=== PATIENT | male | born 1950 | race Caucasian/White ===

== ENCOUNTER 2017-08-25 17:46 | Emergency (ER) | payer MEDICARE, OTHER ==
[2017-08-25 17:55] VITALS: PULSE 70
[2017-08-25] MEDS ORDERED: Pepcid 20 MG VIAL IV ONE ×2 (18:06→18:34)
[2017-08-25] MEDS ORDERED: BABY ASPIRIN 81 MG CHEW PO ONE (18:06)
--- NOTE | 2017-08-25 18:13 | ERPHSYRPT ---
<GEORGES TAPIA J - Last Filed: 08/25/17 18:54> - History of Present Illness Time Seen by Provider: 08/25/17 17:58 Historian: patient, family () Patient Subjective Stated Complaint: pt here for chest pain to center of chest radiating to back at home that has now resolved,no other syptoms Triage Nursing Assessment: pt alert, resp easy, skin w/d/p. states b/p has been high today ,chest clear Physician History: CC: chest pain Hx: 67 y/o patient of [place] used to live here but moved to [place]. Back in town for a few days to tie up loose ends. Used to see Dr Zapien. He has hx of heart disease and aICD. Has had recent ups and downs to BP. Went to [place] this AM but could not be seen. He was burning trash today. No injury. 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 No abd pain. The pain was severe. Not like pain he had in the past. He took a NTG but no change. The pain went away on the way here. No current pain. He takes pradaxa for afib. Timing/Duration: today Nitro Today/Relief: 0.4 mg x 1, provided at home Aspirin Treatment Today: 81 mg x 1, provided by ED Allergies/Adverse Reactions: clarithromycin [From Biaxin] Allergy (Verified 08/25/17 17:56) acetaminophen [From [place]] Adverse Reaction (Verified 08/25/17 17:56) hydrocodone [From [place]] Adverse Reaction (Verified 08/25/17 17:56) Home Medications: Aspirin 81 mg DAILY 08/25/17 [History] Cyanocobalamin (Vitamin B-12) [B-12] 1,000 mg DAILY 08/25/17 [History] Dabigatran Etexilate Mesylate [Pradaxa] 150 mg BID 08/25/17 [History] Finasteride 5 mg [Proscar 5 MG] 5 mg DAILY 08/25/17 [History] Furosemide 40 mg [Lasix 40 MG] 60 mg DAILY 08/25/17 [History] Gabapentin [Neurontin] 600 mg TID 08/25/17 [History] Ipratropium/Albuterol Sulfate [Combivent Inhaler] 2 puffs DAILY 08/25/17 [ History] Lamotrigine 25 mg BID 08/25/17 [History] Lorazepam 0.5 mg [Ativan 0.5 MG] 0.5 mg DAILY 08/25/17 [History] Losartan Potassium [Cozaar] 100 mg DAILY 08/25/17 [History] Oxycodone HCl/Acetaminophen [Oxycodone-Acetaminophen 5-325] 1 ea QID 08/25/17 [ History] Potassium Chloride 10 Meq Tab* [Klor Con 10 MEQ] 10 meq DAILY 08/25/17 [ History] Pravastatin Sodium 20 mg DAILY 08/25/17 [History] Sotalol HCl [Sorine] 80 mg BID 08/25/17 [History] Tamsulosin HCl 0.4 mg [Flomax 0.4 MG] 0.4 mg DAILY 08/25/17 [History] Tizanidine HCl 4 mg [Zanaflex 4 MG] 4 mg DAILY 08/25/17 [History] Hx Influenza Vaccination/Date Given: No Hx Pneumococcal Vaccination/Date Given: No Immunizations Up to Date: Yes - Review of Systems Constitutional: No Fever, No Chills Eyes: No Symptoms Ears, Nose, & Throat: No Symptoms Respiratory: No Cough, No Dyspnea Cardiac: Chest Pain Abdominal/Gastrointestinal: No Abdominal Pain, No Nausea, No Vomiting Genitourinary Symptoms: No Dysuria Skin: No Rash Neurological: No Focal Weakness, No Headache, No Parasthesia All Other Systems: Reviewed and Negative - Past Medical History Pertinent Past Medical History: Yes Cardiac History: Coronary Artery Disease Musculoskeletal History: Degenerative Disk Disease - Past Surgical History Past Surgical History: Yes Cardiac: Cardiac Catheterization, Internal Defibrillator, Pacemaker Gastrointestinal: Cholecystectomy Other Surgical History: caropal tunnel, foot surgery - Social History Smoking Status: Former smoker Exposure to second hand smoke: No Drug Use: none Patient Lives Alone: No - Nursing Vital Signs Nursing Vital Signs: Initial Vital Signs Temperature 97.2 F 08/25/17 17:46 Pulse Rate 100 H 08/25/17 17:46 Respiratory Rate 16 08/25/17 17:46 Blood Pressure 167/80 08/25/17 17:46 O2 Sat by Pulse Oximetry 97 08/25/17 17:46 Pain Scale Pain Intensity 1 - Physical Exam General Appearance: alert Eye Exam: PERRL/EOMI Ears, Nose, Throat Exam: normal ENT inspection, moist mucous membranes Neck Exam: normal inspection, non-tender, supple Respiratory Exam: normal breath sounds, lungs clear Cardiovascular Exam: regular rate/rhythm Gastrointestinal/Abdomen Exam: soft, No tenderness, No distention Extremity Exam: pedal edema Neurologic Exam: alert, oriented x 3, cooperative, sensation nml, No motor deficits Skin Exam: warm, dry, No rash SpO2 Interpretation: normal SpO2: 97 Oxygen Delivery: Room Air - Course Nursing assessment & vital signs reviewed: Yes EKG Interpreted by Me: RATE (79 atrial paced rhythm), LAFB, Non-specific ST Changes, Other (Poor R wave progression) - Radiology Exams cxr X-ray Interpretation: Reviewed by me (CM, AICD, ectatic aorta with some dilatation) Ordered Tests: Active Orders 24 hr Category Date Time Status Seasonal Delivery Driver STAT Care 08/25/17 18:06 Active EKG-ER Only STAT Care 08/25/17 18:06 Active IV Insertion STAT Care 08/25/17 18:06 Active Pulse Oximetry (ED) STAT Care 08/25/17 18:06 Active CHEST 1 VIEW (PORTABLE) Stat Exams 08/25/17 18:18 Taken CBC W DIFF Stat Lab 08/25/17 18:14 Completed CMP Stat Lab 08/25/17 18:14 Completed LIPASE Stat Lab 08/25/17 18:14 Completed Manual Differential NC Stat Lab 08/25/17 18:14 Completed TROPONIN Q3H Lab 08/25/17 18:14 Completed TROPONIN Q3H Lab 08/25/17 21:15 Ordered TROPONIN Q3H Lab 08/26/17 00:15 Ordered TROPONIN Q3H Lab 08/26/17 03:15 Ordered TROPONIN Q3H Lab 08/26/17 06:15 Ordered Medication Summary Discontinued Medications Generic Name Dose Route Start Last Admin Trade Name Freq PRN Reason Stop Dose Admin Aspirin 81 mg 08/25/17 18:06 08/25/17 18:35 Baby Aspirin 81 Mg Chew PO 08/25/17 18:07 81 mg STAT ONE Administration Aspirin Confirm 08/25/17 18:34 Baby Aspirin 81 Mg Chew Administered 08/25/17 18:35 Dose 81 mg .ROUTE .STK-MED ONE Famotidine 20 mg 08/25/17 18:06 08/25/17 18:35 Pepcid 20 Mg Vial IV 08/25/17 18:07 20 mg STAT ONE Administration Famotidine Confirm 08/25/17 18:34 Pepcid 20 Mg Vial Administered 08/25/17 18:35 Dose 20 mg IV .STK-MED ONE Lab/Rad Data: Laboratory Result Diagrams 08/25/17 18:14 08/25/17 18:14 Laboratory Results 08/25/17 08/25/17 08/25/17 Range/Units 18:14 18:14 18:14 WBC (4.0-10.5) K/mm3 RBC (4.1-5.6) M/mm3 Hgb (12.5-18.0) gm/dl Hct (42-50) % MCV (78-100) fl MCH (26-32) pg MCHC (32-36) g/dl RDW (11.5-14.0) % Plt Count (150-450) K/mm3 MPV (6-9.5) fl Sodium 141 (136-145) mEq/L Potassium 3.9 (3.5-5.1) mEq/L Chloride 107 (98-107) mEq/L Carbon Dioxide 26.3 (21-32) mEq/L Anion Gap 11.9 (5-15) MEQ/L BUN 31 H (9-20) mg/dL Creatinine 1.38 H (0.55-1.30) mg/dl Estimated GFR 54 ML/MIN Glucose 118 H (70-110) MG/DL Calcium 8.5 (8.5-10.1) mg/dL Total Bilirubin 0.20 (0.2-1.0) mg/dL AST 15 (15-37) U/L ALT 25 (12-78) U/L Alkaline Phosphatase 62 (46-116) U/L Troponin I < 0.017 (0.000-0.056) ng/ml Serum Total Protein 6.8 (6.4-8.2) gm/dL Albumin 3.5 (3.4-5.0) g/dL Lipase 315 (73-393) U/L 08/25/17 Range/Units 18:14 WBC 18.6 H (4.0-10.5) K/mm3 RBC 4.94 (4.1-5.6) M/mm3 Hgb 13.5 (12.5-18.0) gm/dl Hct 42.1 (42-50) % MCV 85.2 (78-100) fl MCH 27.3 (26-32) pg MCHC 32.1 (32-36) g/dl RDW 14.1 H (11.5-14.0) % Plt Count 279 (150-450) K/mm3 MPV 10.1 H (6-9.5) fl Sodium (136-145) mEq/L Potassium (3.5-5.1) mEq/L Chloride (98-107) mEq/L Carbon Dioxide (21-32) mEq/L Anion Gap (5-15) MEQ/L BUN (9-20) mg/dL Creatinine (0.55-1.30) mg/dl Estimated GFR ML/MIN Glucose (70-110) MG/DL Calcium (8.5-10.1) mg/dL Total Bilirubin (0.2-1.0) mg/dL AST (15-37) U/L ALT (12-78) U/L Alkaline Phosphatase (46-116) U/L Troponin I (0.000-0.056) ng/ml Serum Total Protein (6.4-8.2) gm/dL Albumin (3.4-5.0) g/dL Lipase (73-393) U/L - Progress Progress Note: 08/25/17 18:54 Pt stable. Report to Dr Longoria for further care and disposition. - Departure Clinical Impression: CHEST PAIN, CAD Condition: Stable Referrals: MARKEL BANKS [Primary Care Provider] - <AARON LONGORIA - Last Filed: 08/25/17 20:07> - Progress Progress Note: 08/25/17 19:[address] LONGORIA 193: PERRL, EOMI, PHARYNX PINK, LUNGS CLEAR, NO CARDIAC RUB, ABDOMINAL B.S. HAVE NORMAL TONE, NO CYANOSIS, ALERT & COOPERATIVE. Discussed with DrEdwin: Other (SPOKE WITH DR PADRON(HOSPITALIST AT [facility])(1954) WHO ACCEPTED PT FOR TRANSFER TO [facility] A DIRECT ADMISSION.) - Departure Time of Disposition: 20:07 Departure Disposition: Transfer ([facility]) Critical Care Time: No
[2017-08-25 18:18] LABS: Granulocyte Absolute (ANC) 14.27 (1.4-6.9); Hematocrit 42.1 % (42-50); Hemoglobin 13.5 gm/dl (12.5-18.0); Mean Cell Volume 85.2 fl (78-100); Mean Corpuscular Hemoglobin 27.3 pg (26-32); Mean Corpuscular Hgb Concent. 32.1 g/dl (32-36); Mean Platelet Volume 10.1 fl (6-9.5); Platelet Count 279 K/mm3 (150-450); Red Blood Count 4.94 M/mm3 (4.1-5.6); Red Cell Distribution Width 14.1 % (11.5-14.0); White Blood Count 18.6 K/mm3 (4.0-10.5)
[2017-08-25] MEDS ORDERED: BABY ASPIRIN 81 MG CHEW ONE (18:34)
[2017-08-25 18:37] LABS: ALBUMIN 3.5 g/dL (3.4-5.0); ANION GAP 11.9 MEQ/L (5-15); BILIRUBIN,TOTAL 0.2 mg/dL (0.2-1.0); Calcium 8.5 mg/dL (8.5-10.1); Carbon Dioxide 26.3 mEq/L (21-32); Creatinine 1 1.38 mg/dl (0.55-1.30); Potassium 3.9 mEq/L (3.5-5.1); Total Protein 6.8 gm/dL (6.4-8.2)
[2017-08-25 20:14] VITALS: BP 162/78; O2SAT 94
[2017-08-25] MEDS ORDERED: Sodium Chloride 0.9% 1000 ML 1,000 ML IV SCH (20:15)
[2017-08-25] MEDS ORDERED: MORPHINE SULFATE 4 MG INJ IV ONE (20:19)
[2017-08-25] MEDS ORDERED: Zofran 4 MG/2 ML VIAL IV ONE (20:19)
[2017-08-25] MEDS ORDERED: Sodium Chloride 0.9% 1000 ML 1,000 ML ONE (20:21)
[2017-08-25] MEDS ORDERED: MORPHINE SULFATE 2 MG INJ ONE (20:21)
[2017-08-25] MEDS ORDERED: Zofran 4 MG/2 ML VIAL ONE (20:36)
[2017-08-25 21:37] LABS: Lymphocytes 10 % (24-44); Monocyte 1 % (0.0-12.0); Neutrophils 89 % (36.-66.); Platelet Estimate NORMAL (NORMAL); Total Cells Counted 100
--- NOTE | 2017-08-26 08:36 | XRAY ---
Indication: Chest pain. Comparison: None Portable chest slightly underinflated with minimal bibasilar linear opacities probably atelectasis/scarring. No focal infiltrate, consolidation, or large effusion. Heart is not enlarged for AP portable technique. Left-sided AICD. Bony thorax intact with mild degenerative changes. Impression: Nonacute chest with chronic features.
== END 2017-08-25 20:55 | disposition short-term general hospital (02) ==
LOC: ED 17:46
DX: R07.9 Chest pain, unspecified (principal); I25.10 Atherosclerotic heart disease of native coronary artery without angina pectoris; I48.91 Unspecified atrial fibrillation; Z79.01 Long term (current) use of anticoagulants; Z79.899 Other long term (current) drug therapy
CPT/HCPCS: 36000; 36415; 71045; 80053; 83690; 84484; 85025; 93005; 93041; 96360; 96374; 96375; 99285; J2270; J2405; A9270-GY

== ENCOUNTER 2024-10-06 07:46 | Day surgery (SDC) | payer OTHER ==
[2024-10-06] MEDS ORDERED: LIDOCAINE HCL 1% AMPUL 5 ML IJ ONE (07:47)
[2024-10-06] MEDS ORDERED: Depo-Medrol 40 MG/ML IM ONE (07:47)
[2024-10-06] MEDS ORDERED: BUPIVACAINE 0.5% VIAL IJ ONE (07:47)
[2024-10-06] MEDS ORDERED: propofoL IV ONE ×2 (08:56→09:14)
[2024-10-06] MEDS ORDERED: Ephedrine Sulfate 50 MG/ML ONE (09:24)
[2024-10-06] MEDS ORDERED: Versed 2 MG/2 ML Injection ONE (09:26)
[2024-10-06] MEDS ORDERED: Amidate 20 MG/10 ML IV ONE (09:35)
--- NOTE | 2024-10-06 12:36 | XRAY ---
Indication: Bilateral hip and bilateral greater trochanter bursa injection. Intraoperative fluoroscopy provided for 56 seconds. 4 digital spot images submitted for interpretation demonstrates needle tips projecting lateral to left/right femur necks and left/right greater trochanters. Small amount of contrast injected for all needle tip placement. Correlate with intraoperative findings/report.
--- NOTE | 2024-10-06 12:54 | XRAY ---
56 seconds of fluoroscopy was used in surgery for a bilateral intra-articular hip and greater trochanteric bursa injection.
== END 2024-10-06 09:57 | disposition home or self-care (01) ==
LOC: SDC-PAIN 07:46
PROVIDERS: ATTEND Psychiatry & Neurology Pain Medicine
DX: M16.0 Bilateral primary osteoarthritis of hip (principal); E11.9 Type 2 diabetes mellitus without complications; M70.62 Trochanteric bursitis, left hip; M70.61 Trochanteric bursitis, right hip
CPT/HCPCS: 20610; 73522; 77002; 82947; J2250; J2704; Q9966